=== PATIENT | female | born 1995 | race Caucasian/White ===

== ENCOUNTER 2021-07-13 22:06 | Emergency (ER) | payer SELFPAY ==
[2021-07-13 22:12] VITALS: BP 160/93; PULSE 74; RESP 16; TEMP 36.7; O2SAT 96; BMI 18.3
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
[2021-07-13] MEDS: acetaminophen 500 mg Tablet 1000 MG PO (22:42)
[2021-07-13] MEDS: silver sulfadiazine cream 1% 50 gm 1 APPLIC TOPICAL (22:43)
== END 2021-07-13 22:49 | disposition home or self-care (01) ==
PROVIDERS: Emergency Provider Nurse Practitioner Family
DX: T20.00XA Burn of unspecified degree of head, face, and neck, unspecified site, initial encounter (principal); X03.8XXA Other exposure to controlled fire, not in building or structure, initial encounter
CPT/HCPCS: 99283